=== PATIENT | male | born 1940 | race Caucasian/White ===

== ENCOUNTER → 2017-12-09 06:51 | Outpatient (CLI) | payer MEDICARE, SELFPAY ==
[2017-12-09 08:29] LABS: Alanine Aminotransferase 43 IU/L (21-72); Albumin 4.4 g/dL (3.5-5.0); Albumin Globulin Ratio 1.5 (1.0-2.8); Alkaline Phosphatase 58 U/L (38-126); Aspartate Aminotransferase 35 IU/L (17-59); BUN Creatinine Ratio 14.6 (6-22); Bilirubin Total 0.6 mg/dL (0.2-1.3); Blood Urea Nitrogen 19 mg/dL (9-20); Calcium 9.6 mg/dL (8.4-10.2); Carbon Dioxide 31 mmol/L (22-32); Chloride 97 mmol/L (98-107); Estimated Glomerular Filt Rate 53.3 mL/min (>60); Glucose 96 mg/dL (80-110); HEMOLYSIS < 15 (0-50); Potassium 4.6 mmol/L (3.4-5.1); Sodium 136 mmol/L (137-145); Total Protein 7.4 g/dL (6.3-8.2)
[2017-12-09 08:59] LABS: Prostate Specific Antigen Scrn 2.21 ng/mL (0.1-4.0)
[2017-12-13 09:48] LABS: Lipoprofile NMR SEE SEPARATE REPORTS
== END ==
PROVIDERS: PCP Internal Medicine; Visit Provider Specialist
DX: E78.2 Mixed hyperlipidemia (principal); Z12.5 Encounter for screening for malignant neoplasm of prostate
CPT/HCPCS: 36415; 80053; 83704; G0103

== ENCOUNTER → 2017-12-21 10:43 | Outpatient (CLI) | payer MEDICARE, SELFPAY ==
--- NOTE | 2017-12-21 | DI.ECHO.S_ITS ---
[facility] +---------+ : : [address] : : : : [id number] : : : : Phone: [phone]+ Echocardiogram Report + + :Name: HAMLET YANG Study Date: 12/21/2017 Height: 67 in : :[facility] Exam Location: [facility] Weight: 152 lb : : Gender: Male BSA: 1.8 m2 : :: 1940 Age: 77 yrs BP: 190/90 mmHg: :Reason For Study: : :Ordering Physician: Eliane : :Paolo Performed By: Danielle Temple : :Referring: ELIANE BOYD : + + Interpretation Summary The left ventricle is normal in size, wall thickness, and systolic function without any focal wall motion abnormalities with the ejection fraction visually estimated to be 60-65% and appears unchanged compared to the previous study. Assessment of diastolic parameters indicates a relaxation abnormality of the left ventricle, consistent with normal filling pressures. There has been no significant change since the previous study. The right ventricle is normal in size and function, and appears unchanged compared to the previous study. The right ventricular systolic pressure is estimated at 26 mmHg assuming a right atrial pressure of 3 mm Hg, and is unchanged compared to the previous study. The left atrium is severely dilated while right atrial size is normal. Both are essentially unchanged compared to the previous study. There is mild to moderate mitral regurgitation that is slightly more prominent compared to the previous study. The aortic valve is moderately calcified that appears slightly more prominent compared to the previous study. There is mild to moderate aortic stenosis that is essentially unchanged compared to the previous study with a peak aortic velocity of 2.6 m/sec and a mean gradient of 15 mmHg. There is trace aortic regurgitation that is unchanged compared to the previous study. The ascending aorta is mildly enlarged but is unchanged compared to the previous study. Procedure: A two-dimensional transthoracic echocardiogram with color flow and Doppler was performed. The study quality was technically adequate. Comparison is made with the echocardiogram of 02/05/16. The patient was in normal sinus rhythm during the exam. The patient had frequent PACs during the exam. Left Ventricle: The left ventricle is normal in size, wall thickness, and systolic function without any focal wall motion abnormalities. The ejection fraction is estimated to be 60-65%. This is unchanged compared to the previous study. Assessment of diastolic parameters indicates a relaxation abnormality of the left ventricle, consistent with normal filling pressures. There has been no significant change since the previous study. Right Ventricle: The right ventricle is normal in size and function. This is unchanged compared to the previous study. Atria: The left atrium is severely dilated. Right atrial size is normal. This is unchanged compared to the previous study. There is no Doppler evidence for an interatrial shunt. Mitral Valve: There is mild mitral annular calcification. There is mild to moderate mitral regurgitation. This is slightly more prominent compared to the previous study. Aortic Valve: The aortic valve is trileaflet. The aortic valve is moderately calcified. Leaflet mobility is mildly reduced. This is slightly more prominent compared to the previous study. There is mild to moderate aortic stenosis. This is unchanged compared to the previous study. The calculated aortic valve area is 1.3 cm2. The peak aortic velocity is 2.6 m/sec. The peak aortic velocity on the previous exam was 2.5 m/sec. The aortic valve mean gradient is 15 mmHg. There is trace aortic regurgitation. This is unchanged compared to the previous study. Tricuspid Valve: The tricuspid valve is normal. There is trace tricuspid regurgitation. The right ventricular systolic pressure is estimated at 26 mmHg assuming a right atrial pressure of 3 mm Hg. This is unchanged compared to the previous study. Pulmonic Valve: The pulmonic valve is not well seen, but is grossly normal. There is trace pulmonic regurgitation. Great Vessels: The aortic root is normal size. The ascending aorta is mildly enlarged. This is unchanged compared to the previous study. The aortic arch could not be visualized. The pulmonary is not well visualized. The IVC is of normal diameter and collapses greater than 50% with a sniff. This suggests a low right atrial pressure of 3 mm Hg. Pericardium/ Pleura There is no pericardial effusion. There is no pleural effusion. MMode/2D Measurements & Calculations LVIDd: 4.5 cm LVOT diam: 2.1 cm LVIDs: 2.7 cm Ao root diam: 3.4 cm FS: 39.3 % asc Aorta Diam: 3.7 cm EPSS: 0.54 cm IVSd: 0.99 cm LVPWd: 0.91 cm LV flores. diameter/BSA (cm/m^2): 2.5 LV sys. diameter/BSA (cm/m^2): 1.5 LA A2 area: 26.7 cm2 RA long axis: 4.8 cm LA A4 area: 24.2 cm2 RA area: 15.8 cm2 LA length (vol): 5.6 cm RA vol: 43.7 ml LA vol: 98.0 ml RA : 24.3 ml/m2 LA vol index: 54.5 ml/m2 IVC diam: 0.96 cm RVD1 (basal): 4.1 cm RVD2 (mid): 2.6 cm TAPSE: 3.1 cm Doppler Measurements & Calculations Ao V2 max: 257.4 cm/sec LVOT Max Saleem: 98.1 cm/sec Ao V2 mean: 182.4 cm/sec LV V1 max P.8 mmHg Ao max P.5 mmHg LV V1 VTI: 22.3 cm Ao mean P.6 mmHg THAO(I,D): 1.3 cm2 Ao V2 VTI: 62.7 cm THAO(V,D): 1.4 cm2 sev ratio: 0.36 THAO indexed to BSA (cm^2/m^2): 0.72 AI P1/2t: 489.8 msec AI dec slope: 257.6 cm/sec2 MV E max saleem: 77.0 cm/sec TR max saleem: 237.9 cm/sec MV A max saleem: 112.9 cm/sec TR max P.6 mmHg MV E/A: 0.68 PA V2 max: 76.3 cm/sec Med Peak E' Saleem: 4.2 cm/sec PA V2 mean: 59.0 cm/sec E/E' med: 18.3 PA mean P.5 mmHg Lat Peak E' Saleem: 4.6 cm/sec PA pr(Accel): 44.1 mmHg E/E' lat: 16.6 E/e' average: 17.5 MV dec time: 0.21 sec MV P1/2t: 60.4 msec MV P1/2t max saleem: 77.2 cm/sec MVA(P1/2t): 3.6 cm2 Reading Physician:BLOSSOM
== END ==
PROVIDERS: PCP Internal Medicine; Visit Provider Specialist
DX: I08.0 Rheumatic disorders of both mitral and aortic valves (principal)
CPT/HCPCS: 93306

== ENCOUNTER → 2018-01-18 08:47 | Outpatient (CLI) | payer MEDICARE, SELFPAY ==
[2018-01-18 10:41] LABS: BUN Creatinine Ratio 10.8 (6-22); Blood Urea Nitrogen 14 mg/dL (9-20); Calcium 9.5 mg/dL (8.4-10.2); Carbon Dioxide 29 mmol/L (22-32); Chloride 92 mmol/L (98-107); Estimated Glomerular Filt Rate 53.3 mL/min (>60); Glucose 95 mg/dL (80-110); HEMOLYSIS < 15 (0-50); Potassium 4.6 mmol/L (3.4-5.1); Sodium 131 mmol/L (137-145)
== END ==
PROVIDERS: Family Provider Internal Medicine; PCP Internal Medicine; Visit Provider Specialist
DX: I10 Essential (primary) hypertension (principal); E78.2 Mixed hyperlipidemia
CPT/HCPCS: 36415; 80048

== ENCOUNTER → 2018-09-29 06:57 | Outpatient (CLI) | payer MEDICARE, SELFPAY ==
[2018-09-29 08:10] LABS: Alanine Aminotransferase 22 IU/L (21-72); Albumin 4.5 g/dL (3.5-5.0); Albumin Globulin Ratio 1.3 (1.0-2.8); Alkaline Phosphatase 50 U/L (38-126); Aspartate Aminotransferase 27 IU/L (17-59); BUN Creatinine Ratio 14.3 (6-22); Bilirubin Total 0.6 mg/dL (0.2-1.3); Blood Urea Nitrogen 20 mg/dL (9-20); Calcium 9.6 mg/dL (8.4-10.2); Carbon Dioxide 29 mmol/L (22-32); Chloride 97 mmol/L (98-107); Estimated Glomerular Filt Rate 48.8 mL/min (>60); Globulin 3.5 g/dL (1.7-4.1); Glucose 96 mg/dL (80-110); HEMOLYSIS < 15 (0-50); Potassium 4.2 mmol/L (3.4-5.1); Sodium 133 mmol/L (137-145)
[2018-10-03 08:44] LABS: Lipoprofile NMR SEE SEPERATE REPORT
== END ==
PROVIDERS: Family Provider Internal Medicine; PCP Internal Medicine; Visit Provider Specialist
DX: I10 Essential (primary) hypertension (principal); E78.2 Mixed hyperlipidemia
CPT/HCPCS: 36415; 80053; 83704

== ENCOUNTER → 2018-10-03 12:07 | Outpatient (CLI) | payer MEDICARE, SELFPAY ==
--- NOTE | 2018-10-03 | DI.US.S_ITS ---
PROCEDURE: US CAROTID DOPPLER BI INDICATIONS: BILATERAL CAROTID BRUITS TECHNIQUE: Color and pulse Doppler interrogation was performed of both carotid systems, with image documentation and velocity measurements. COMPARISON: [facility], [place], CAROTID ARTERY DOPPLER BILAT, 07/19/2014, 9:19. FINDINGS: Stenosis calculations are based on SRU (Society of Radiologists in Ultrasound) criteria. Right side: Brachial blood pressure: 143/72 mm Hg. Common carotid artery peak systolic velocity: 87 cm/sec. Internal carotid artery peak systolic velocity: 98 cm/sec. Internal carotid artery end diastolic velocity: 38 cm/sec. External carotid artery peak systolic velocity: 105 cm/sec. ICA/CCA peak systolic ratio: 1.1. Brennan scale imaging description: Mild scattered plaque. Percent internal carotid artery stenosis: Less than 50%. Vertebral artery: Flow direction is antegrade. Left side: Brachial blood pressure: 156/67 mm Hg. Common carotid artery peak systolic velocity: 77 cm/sec. Internal carotid artery peak systolic velocity: 82 cm/sec. Internal carotid artery end diastolic velocity: 33 cm/sec. External carotid artery peak systolic velocity: 83 cm/sec. ICA/CCA peak systolic ratio: 1.1. Brennan scale imaging description: Moderate scattered plaque. Percent internal carotid artery stenosis: Less than 50%. Vertebral artery: Flow direction is antegrade. IMPRESSION: Stable left than 50% bilateral internal carotid artery stenosis. Dictated by: William Rosa [facility] Interpreted: Nikolai Francisco MD on 10/03/2018 at 13:33 Approved by: Nikolai Francisco M.D. on 10/03/2018 at 17:22
== END ==
PROVIDERS: PCP Internal Medicine; Visit Provider Specialist
DX: I65.23 Occlusion and stenosis of bilateral carotid arteries (principal); R09.89 Other specified symptoms and signs involving the circulatory and respiratory systems
CPT/HCPCS: 93880

== ENCOUNTER → 2018-10-21 07:51 | Outpatient (CLI) | payer MEDICARE, SELFPAY ==
--- NOTE | 2018-10-21 | DI.ECHO.S_ITS ---
[facility]---------+ [facility] +---------+ : : [address] [place] [place] : : : : [id number] : : : : Phone: [phone]---------+ Echocardiogram Report + + :Name: HAMLET YANG Study Date: 10/21/2018 Height: 67 in : :[facility] Weight: 157 lb : : Gender: Male BSA: 1.8 m2 : :: 1940 Age: 78 yrs BP: 170/70 mmHg: :Reason For Study: Aortic valve stenosis : :Ordering Physician: Selwyn : :Paolo Performed By: Opal Galeas : :Referring: Dr. Carlton Barron : + + Interpretation Summary Left ventricular systolic function is normal without focal wall motion abnormalities with the ejection fraction visually estimated to be 60-65%. Left ventricular wall thickness is borderline increased and diastolic parameters suggest a relaxation abnormality of the left ventricle, consistent with probable normal filling pressures. There has been no significant change since the previous study. The right ventricle is normal in size and function and appears unchanged compared to the previous study. The right ventricular systolic pressure is estimated to be at least 28 mmHg based on an estimated right atrial pressure of 3 mm Hg, and is likely similar to the previous study. The left atrium is moderately dilated and is unchanged compared to the previous study. The right atrium is borderline dilated and measures slightly larger compared to the previous study. There is mild mitral regurgitation that is unchanged compared to the previous study. The aortic valve is severely calcified with moderate to severely reduced leaflet mobility producing probable moderate aortic stenosis that is slightly progressive compared to the previous study. The peak aortic velocity is 2.9 m/s compared to 2.6 m/s on the previous exam. The aortic valve mean gradient is now 18 mmHg compared to 15 mmHg previously with a calculated aortic valve area of 1.1 rn maternal child? compared to 1.4 rn maternal child? previously. The aortic valve area is 0.7 rn maternal child? by planimetry but the severity ratio is only 0.32, compared to 0.36 previously. There is mild aortic regurgitation that is slightly more prominent compared to the previous study. The ascending aorta is mildly enlarged and the aortic arch is at the upper limits of normal in size but are unchanged compared to the previous study. The patient was in normal sinus rhythm between 55-65 bpm with frequent PACs, at times in a bigeminal pattern, during the exam. Procedure: A two-dimensional transthoracic echocardiogram with color flow and Doppler was performed. The study quality was technically adequate. Comparison is made with the echocardiogram of 12-21-17. The patient was in normal sinus rhythm during the exam. The heart rate ranged between 55-65 bpm during the study. The patient had frequent PACs during the exam. Left Ventricle: The left ventricle is normal in size. Left ventricular wall thickness is borderline increased. Left ventricular systolic function is normal without focal wall motion abnormalities. The ejection fraction is estimated to be 60-65%. Diastolic parameters suggest a relaxation abnormality of the left ventricle, consistent with probable normal filling pressures. There has been no significant change since the previous study. Right Ventricle: The right ventricle is normal in size and function. This is unchanged compared to the previous study. Atria: The left atrium is moderately dilated. This is unchanged compared to the previous study. The right atrium is borderline dilated. This is slightly larger compared to the previous study. Mitral Valve: There is mild to moderate mitral annular calcification. The mitral valve leaflets appear borderline thickened, but open well. There is mild mitral regurgitation. This is unchanged compared to the previous study. Aortic Valve: The aortic valve is severely calcified. There is moderate to severely reduced leaflet mobility. There is moderate aortic stenosis. This is slightly progressive compared to the previous study. The peak aortic velocity is 2.9 m/sec. The peak aortic velocity on the previous exam was 2.6 m/sec. The aortic valve mean gradient is 18 mmHg. The calculated aortic valve area is 1.1 cm2. The aortic valve area is 0.7 centimeters squared by planimetry. Severity ratio is 0.32. There is mild aortic regurgitation. This is slightly more prominent compared to the previous study. Tricuspid Valve: The tricuspid valve leaflets are thin and pliable. There is trace tricuspid regurgitation. The right ventricular systolic pressure is estimated to be at least 28 mmHg based on an estimated right atrial pressure of 3 mm Hg. This is unchanged compared to the previous study. Pulmonic Valve: The pulmonic valve is not well seen, but is grossly normal. There is trace pulmonic regurgitation. Great Vessels: The aortic root is normal size. The ascending aorta is mildly enlarged. The aortic arch is at the upper limits of normal in size. This is unchanged compared to the previous study. The IVC is of normal diameter and collapses greater than 50% with a sniff. This suggests a low right atrial pressure of 3 mm Hg. Pericardium/ Pleura There is no pericardial effusion. There is no pleural effusion. MMode/2D Measurements & Calculations LVIDd: 4.9 cm LVOT diam: 2.1 cm LVIDs: 2.6 cm Ao root diam: 3.0 cm FS: 46.7 % Aortic Jxn: 2.3 cm EPSS: 0.75 cm asc Aorta Diam: 3.6 cm IVSd: 0.89 cm Ao Arch Diam (Prox Trans): 3.0 cm LVPWd: 0.86 cm LV flores. diameter/BSA (cm/m^2): 2.7 LV sys. diameter/BSA (cm/m^2): 1.4 LA dimension: 4.1 cm RA long axis: 4.9 cm LA A2 area: 25.2 cm2 RA area: 18.1 cm2 LA A4 area: 20.4 cm2 RA vol: 56.6 ml LA length (vol): 4.8 cm RA : 31.0 ml/m2 LA vol: 90.1 ml IVC diam: 1.6 cm LA vol index: 49.4 ml/m2 RVDd major: 5.0 cm RVD1 (basal): 3.3 cm RVD2 (mid): 3.0 cm THAO (plan): 0.69 cm2 Doppler Measurements & Calculations Ao V2 max: 291.1 cm/sec LVOT Max Saleem: 94.3 cm/sec Ao V2 mean: 199.7 cm/sec LV V1 max P.6 mmHg Ao max P.9 mmHg LV V1 VTI: 24.4 cm Ao mean P.1 mmHg THAO(I,D): 1.1 cm2 Ao V2 VTI: 75.3 cm THAO(V,D): 1.1 cm2 sev ratio: 0.32 THAO indexed to BSA (cm^2/m^2): 0.62 AI P1/2t: 549.5 msec AI dec slope: 273.6 cm/sec2 MV E max saleem: 90.8 cm/sec TR max saleem: 248.6 cm/sec MV A max saleem: 108.5 cm/sec TR max P.7 mmHg MV E/A: 0.84 PA V2 max: 78.6 cm/sec Med Peak E' Slaeem: 3.6 cm/sec PA V2 mean: 51.7 cm/sec E/E' med: 25.4 PA mean P.3 mmHg Lat Peak E' Saleem: 6.3 cm/sec PA Accel Time: 0.13 sec E/E' lat: 14.4 E/e' average: 19.9 MV dec time: 0.19 sec MV P1/2t: 57.1 msec MV P1/2t max saleem: 91.4 cm/sec MR flow rate: 51.1 cm3/sec MVA(2t): 3.9 cm2 MR PISA radius: 0.46 cm SV(LVOT): 85.7 ml Reading Physician:CYNTHIA
== END ==
PROVIDERS: PCP Internal Medicine; Visit Provider Specialist
DX: I08.0 Rheumatic disorders of both mitral and aortic valves (principal); I77.89 Other specified disorders of arteries and arterioles
CPT/HCPCS: 93306

== ENCOUNTER → 2018-11-10 07:42 | Outpatient (CLI) | payer MEDICARE, SELFPAY ==
--- NOTE | 2018-11-10 | DI.NM.S_ITS ---
PROCEDURE: AR CHANTAL PERF SPECT REST & STR Rest and exercise myocardial perfusion SPECT with gated imaging and ejection fraction RADIOPHARMACEUTICAL: 25.7 mCi Tc-99m sestamibi IV at rest and 25.8 mCi Tc-99m sestamibi IV at peak exercise. A two day-protocol was performed. INDICATIONS: ANGINA PECTORIS TECHNIQUE: Radiopharmaceutical was injected at peak stress test, and also at rest. SPECT images were obtained. SPECT myocardial perfusion images were displayed in short axis, horizontal long axis, and vertical long axis views. Gated images were reviewed using [email or web address] software. COMPARISON: [place], [place], MYOCARDIAL PERFUSION, 01/07/2009, 13:17. CARDIAC STRESS: A standard Héctor treadmill exercise tolerance test was performed by the patient under the supervision of an attending staff. The patient exercised for 6 minutes and 4 seconds; functional aerobic impairment (PAULY) is -10% on active scale. Hemodynamic data: There is normal blood pressure and heart rate response to exercise stress. Patient achieved 92% of maximum predicted heart rate at peak exercise. Symptoms: Patient denied chest pain during exercise. Study was stopped as the target heart rate was achieved. EKG: Resting ECG shows sinus rhythm and very mild ST depression in the anterior leads. With exercise, there were 2-3mm downsloping ST depressions in the inferior and anterolateral leads concerning for ischemia. ST elevation in aVR lead also noted. No ectopy present. FINDINGS: Raw data: There is good myocardial labeling by radiotracer. No significant motion artifacts. [id number] ratio is 0.3 (normal is less than 0.38 for sestamibi tracer, and less than 0.50 for thallium tracer). Left ventricle function: Gated images demonstrate normal left ventricle wall thickening. No segmental wall motion abnormality. No transient ischemic dilation; TID is 1.22 (normal less than 1.3). The left ventricle resting end-diastolic volume is 109 mL. Left ventricle stress ejection fraction is 62%; normal values are above 45%. 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 SSS 29, SRS 12. IMPRESSION: High risk, abnormal treadmill nuclear stress test. 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 SSS 29, SRS 12. 2) Normal left ventricular size, wall motion, and systolic function (EF post stress 62%). 3) ECG suggestive of ischemia. 2-3mm downsloping ST depressions in the inferior and anterolateral leads concerning for ischemia. ST elevation in aVR lead also noted. 4) No angina during the study. Study terminated as the target heart rate was achieved. 5) Average exercise tolerance (7.0 METs, PAULY -10% on active scale). Appropriate blood pressure response to exercise. 6) Compared to the nuclear stress test done 01/07/2009, the perfusion abnormalities described above are new on this study. Dictated by: Caitlin Merino MD on 11/11/2018 at 12:57 Approved by: Caitlin Merino MD on 11/11/2018 at 13:05
--- NOTE | 2018-11-10 08:45 | PM.TREADMILL ---
Cardiac Stress Test Report Referral & Results Date Patient Seen: 11/10/18 Time Patient Seen: 08:30 Requesting provider: Selwyn Boone Indication: Angina Rest ECG: NSR Procedure Note: Today following both written and verbal informed consent the patient was exercised according to a standard Héctor protocol patient went for a total of 6 minutes achieving a maximum heart rate of 129 maximum systolic blood pressure of 165. This is approximately 7 METS. Exercise was terminated at this point because of diffuse ST deviations of approximately 3 mm. Patient was also given Cardiolite through a previously started Hep-Lock IV by the nuclear plant construction worker approximately 1 minute prior to the cessation of exercise. Normal sinus rhythm throughout. Mild symptoms of angina, non limiting. Impression: Will await perfusion imaging. Please note: Actual ECG tracings can be found in the PACS system.
== END ==
PROVIDERS: PCP Internal Medicine; Visit Provider Specialist
DX: R94.39 Abnormal result of other cardiovascular function study (principal); I20.9 Angina pectoris, unspecified
CPT/HCPCS: 78452; 93016; 93017; 93018; A9502

== ENCOUNTER → 2018-11-30 16:23 | Outpatient (CLI) | payer MEDICARE, SELFPAY ==
[2018-11-30 17:07] LABS: Add Manual Diff / Slide Review NO; Basophils Absolute Auto 0 /uL (0-100); Basophils Percent Auto 0.8 % (0-2); Eosinophils Absolute Auto 300 /uL (0-450); Eosinophils Percent Auto 6.7 % (2-4); Hematocrit 35.9 % (41-53); Hemoglobin 12.4 g/dL (13.5-17.5); Lymphocytes Absolute Auto 800 /uL (1100-4500); Lymphocytes Percent Auto 17.7 % (25-40); Mean Corpuscular HGB Conc 34.6 % (30-36); Mean Corpuscular Hemoglobin 30.9 PG (26-34); Mean Corpuscular Volume 89.2 fL (80-100); Monocytes Absolute Auto 500 /uL (0-900); Monocytes Percent Auto 11.4 % (3-14); Neutrophils Absolute Auto 3000 /uL (1500-7000); Neutrophils Percent Auto 63.4 % (50-75); Platelet Count 354 X10^3/uL (150-400); Red Blood Cell Count 4.02 X10^6/uL (4.5-5.9); Red Cell Distribution Width 13.1 % (11.6-14.8); White Blood Cell Count 4.8 X10^3/uL (4.5-11.0)
[2018-11-30 18:52] LABS: Thyroid Stimulating Hormone 2.44 uIU/mL (0.47-4.68)
== END ==
PROVIDERS: PCP Internal Medicine; Visit Provider Nurse Practitioner
DX: I25.10 Atherosclerotic heart disease of native coronary artery without angina pectoris (principal); R53.83 Other fatigue
CPT/HCPCS: 36415; 84443; 85025

== ENCOUNTER → 2019-01-31 12:02 | Outpatient (CLI) | payer MEDICARE, SELFPAY ==
--- NOTE | 2019-01-31 12:06 | DI.RAD.S_ITS ---
PROCEDURE: XR CHEST 2V INDICATIONS: hypertension TECHNIQUE: 2 views of the chest were acquired. COMPARISON: None. FINDINGS: Surgical changes and devices: None. Lungs and pleura: Lungs are clear. No pleural effusions or pneumothorax. Mediastinum: Mediastinal contours are normal. Heart size is normal. Bones and chest wall: No suspicious bony abnormalities. Soft tissues appear unremarkable. IMPRESSION: Large lung volumes, flattening of the diaphragms on the lateral view, possible COPD. Dictated by: Juarez Hidalgo M.D. on 01/31/2019 at 13:47 Approved by: Juarez Hidalgo M.D. on 01/31/2019 at 13:47
[2019-01-31 12:49] LABS: Add Manual Diff / Slide Review NO; Basophils Absolute Auto 0 /uL (0-100); Basophils Percent Auto 0.6 % (0-2); Eosinophils Absolute Auto 200 /uL (0-450); Eosinophils Percent Auto 4.7 % (2-4); Hematocrit 35.8 % (41-53); Hemoglobin 12.8 g/dL (13.5-17.5); Lymphocytes Absolute Auto 600 /uL (1100-4500); Lymphocytes Percent Auto 13.7 % (25-40); Mean Corpuscular HGB Conc 35.8 % (30-36); Mean Corpuscular Hemoglobin 32.1 PG (26-34); Mean Corpuscular Volume 89.7 fL (80-100); Monocytes Absolute Auto 600 /uL (0-900); Monocytes Percent Auto 12.1 % (3-14); Neutrophils Absolute Auto 3200 /uL (1500-7000); Neutrophils Percent Auto 68.9 % (50-75); Platelet Count 331 X10^3/uL (150-400); Red Cell Distribution Width 13.4 % (11.6-14.8); White Blood Cell Count 4.7 X10^3/uL (4.5-11.0)
[2019-01-31 13:39] LABS: Alanine Aminotransferase 34 IU/L (21-72); Albumin 4.6 g/dL (3.5-5.0); Albumin Globulin Ratio 1.4 (1.0-2.8); Alkaline Phosphatase 55 U/L (38-126); Aspartate Aminotransferase 33 IU/L (17-59); BUN Creatinine Ratio 14.3 (6-22); Bilirubin Total 0.5 mg/dL (0.2-1.3); Blood Urea Nitrogen 20 mg/dL (9-20); Calcium 9.7 mg/dL (8.4-10.2); Carbon Dioxide 27 mmol/L (22-32); Chloride 92 mmol/L (98-107); Estimated Glomerular Filt Rate 48.8 mL/min (>60); Globulin 3.2 g/dL (1.7-4.1); Glucose 117 mg/dL (80-110); HEMOLYSIS < 15 (0-50); Potassium 4.8 mmol/L (3.4-5.1); Sodium 130 mmol/L (137-145); Total Protein 7.8 g/dL (6.3-8.2)
== END ==
PROVIDERS: Family Provider Specialist; PCP Internal Medicine; Visit Provider Internal Medicine
DX: I25.10 Atherosclerotic heart disease of native coronary artery without angina pectoris (principal); I10 Essential (primary) hypertension; I35.0 Nonrheumatic aortic (valve) stenosis
CPT/HCPCS: 36415; 71046; 80053; 85025

== ENCOUNTER → 2019-03-02 06:53 | Outpatient (CLI) | payer MEDICARE, SELFPAY ==
[2019-03-02 08:09] LABS: Alanine Aminotransferase 27 IU/L (<50); Albumin 4.6 g/dL (3.5-5.0); Albumin Globulin Ratio 1.5 (1.0-2.8); Alkaline Phosphatase 59 U/L (38-126); Aspartate Aminotransferase 36 IU/L (17-59); Bilirubin Total 0.8 mg/dL (0.2-1.3); Blood Urea Nitrogen 21 mg/dL (9-20); Calcium 9.8 mg/dL (8.4-10.2); Carbon Dioxide 28 mmol/L (22-32); Chloride 100 mmol/L (98-107); Estimated Glomerular Filt Rate 48.8 mL/min (>60); Globulin 3.1 g/dL (1.7-4.1); Glucose 97 mg/dL (80-110); HEMOLYSIS < 15 (0-50); Potassium 5.1 mmol/L (3.4-5.1); Sodium 136 mmol/L (137-145); Total Protein 7.7 g/dL (6.3-8.2)
[2019-03-06 10:18] LABS: Lipoprofile NMR SEE SEPARATE REPORTS
== END ==
PROVIDERS: Family Provider Internal Medicine; PCP Internal Medicine; Visit Provider Specialist
DX: E78.2 Mixed hyperlipidemia (principal)
CPT/HCPCS: 36415; 80053; 83704

== ENCOUNTER → 2019-09-20 06:56 | Outpatient (CLI) | payer MEDICARE, SELFPAY ==
[2019-09-20 08:09] LABS: Add Manual Diff / Slide Review NO; Basophils Absolute Auto 0 /uL (0-100); Basophils Percent Auto 0.7 % (0-2); Eosinophils Absolute Auto 400 /uL (0-450); Eosinophils Percent Auto 8.5 % (2-4); Hematocrit 37.9 % (41-53); Hemoglobin 13.2 g/dL (13.5-17.5); Lymphocytes Absolute Auto 600 /uL (1100-4500); Lymphocytes Percent Auto 14.7 % (25-40); Mean Corpuscular HGB Conc 34.7 % (30-36); Mean Corpuscular Hemoglobin 31.2 PG (26-34); Mean Corpuscular Volume 89.7 fL (80-100); Monocytes Absolute Auto 500 /uL (0-900); Monocytes Percent Auto 12.4 % (3-14); Neutrophils Absolute Auto 2800 /uL (1500-7000); Neutrophils Percent Auto 63.7 % (50-75); Platelet Count 395 X10^3/uL (150-400); Red Blood Cell Count 4.23 X10^6/uL (4.5-5.9); Red Cell Distribution Width 13.6 % (11.6-14.8); White Blood Cell Count 4.3 X10^3/uL (4.5-11.0)
[2019-09-20 08:20] LABS: Alanine Aminotransferase 24 IU/L (<50); Albumin 4.6 g/dL (3.5-5.0); Albumin Globulin Ratio 1.4 (1.0-2.8); Alkaline Phosphatase 54 U/L (38-126); Aspartate Aminotransferase 37 IU/L (17-59); Bilirubin Total 0.6 mg/dL (0.2-1.3); Blood Urea Nitrogen 17 mg/dL (9-20); Calcium 9.9 mg/dL (8.4-10.2); Carbon Dioxide 28 mmol/L (22-32); Chloride 99 mmol/L (98-107); Estimated Glomerular Filt Rate 52.5 mL/min (>60); Globulin 3.4 g/dL (1.7-4.1); Glucose 105 mg/dL (80-110); HEMOLYSIS < 15 (0-50); Potassium 5.2 mmol/L (3.4-5.1); Sodium 134 mmol/L (137-145)
[2019-09-22 07:36] LABS: Cholesterol, Total 227 mg/dL (100-199); HDL-Cholesterol 96 mg/dL (>39); HDL-Particle (Total) 48.9 umol/L (>=30.5); Historical Reading Comment: (.); LDL Particle 1107 nmol/L (<1000); LDL Size 21.4 nm (>20.5); LDL-Cholsterol 116 mg/dL (0-99); LP-IR Score <25 (<=45); Small LDL- Particle <90 nmol/L (<=527); Triglycerides 74 mg/dL (0-149)
== END ==
PROVIDERS: Family Provider Internal Medicine; PCP Internal Medicine; Referring Provider Specialist; Visit Provider Specialist
DX: E78.2 Mixed hyperlipidemia (principal); I10 Essential (primary) hypertension
CPT/HCPCS: 36415; 80053; 80061; 83704; 85025

== ENCOUNTER → 2019-09-28 13:46 | Outpatient (CLI) | payer MEDICARE, SELFPAY ==
--- NOTE | 2019-09-28 13:50 | DI.ECHO.S_ITS ---
[facility] +---------+ : : [address] : : : : [id number] : : : : Phone: [phone] +---------+ Echocardiogram Report + + :Name: HAMLET YANG Study Date: 09/28/2019 Height: 67 in : :[facility] Weight: 155 lb : : Gender: Male BSA: 1.8 m2 : :: 1940 Age: 79 yrs BP: 170/65 mmHg: :Reason For Study: Aortic Stenosis : :Ordering Physician: Eliane : :Paolo Performed By: Jaymie Warren : :Referring: ELIANE BOYD : + + Interpretation Summary Left ventricular systolic function remains normal with an estimated ejection fraction of around 65% without any focal wall motion abnormality and appears unchanged from previous. There is borderline, unchanged LVH. Diastolic function is somewhat challenging to assess but there is likely elevated filling pressures, although likely unchanged or slightly lower compared to the previous study. The right ventricle appears normal and unchanged. PAP cannot be estimated but CVP is likely around 3 mmHg. The left atrium is mildly enlarged while right atrial size is normal. Both have decreased in size since the previous study. There is trivial mitral and tricuspid regurgitation, and both are less prominent compared to the previous. There is likely moderately severe aortic stenosis, possibly slightly progressive since the previous study now with a peak velocity of 3.4 m/s with a mean gradient of 26 mmHg compared to 2.9 m/s and 18 mmHg, respectively, compared to the previous study although more extensive Doppler interrogations were performed on today's exam. The calculated valve area is identical at 1.1 transmission and coordination engineer? and the severity ratio is similar at 0.36 compared to 0.32 previously. There continues to be mild aortic regurgitation that is unchanged. The ascending aorta is mildly enlarged but unchanged. Procedure: A two-dimensional transthoracic echocardiogram with color flow and Doppler was performed. The study quality was technically adequate. Comparison is made with the echocardiogram of 10/21/2018. The patient was in sinus rhythm with heart rates between 65-70 bpm during the exam. Left Ventricle: The left ventricle is normal in size. There is borderline concentric left ventricular hypertrophy. This is unchanged compared to the previous study. Left ventricular systolic function is normal without focal wall motion abnormalities. The ejection fraction is estimated to be 65-70%. This is unchanged compared to the previous study. Diastolic parameters suggest a pseudonormalization pattern, consistent with probable elevated filling pressures. This is likely unchanged or slightly lower compared to the previous study. Right Ventricle: The right ventricle is normal in size and function. This is unchanged compared to the previous study. Atria: The left atrium is mildly dilated. Both atria have mildly decreased in size since the prior echo exam. The right atrium is normal in size. There is no Doppler evidence for an interatrial shunt. Mitral Valve: There is mild to moderate mitral annular calcification. The mitral valve leaflets appear borderline thickened, but open well. There is trace mitral regurgitation. This is less prominent compared to the previous study. Aortic Valve: The aortic valve is moderately calcified. There is moderate to severely reduced leaflet mobility. There is moderate to severe aortic stenosis. This is likely unchanged or only slightly progressive compared to the previous study. The peak aortic velocity is 3.4 m/sec. The aortic valve mean gradient is 26.5 mmHg. The peak aortic velocity on the previous exam was 2.9 m/sec. There is mild aortic regurgitation. This is unchanged compared to the previous study. Tricuspid Valve: The tricuspid valve is normal in structure and function. There is trace tricuspid regurgitation. This is less prominent compared to the previous study. Pulmonary artery pressures cannot be estimated because of the lack of a measurable TR jet velocity but the IVC suggests a CVP of around 3 mmHg. Pulmonic Valve: The pulmonic valve is not well seen, but is grossly normal. There is a trace or physiologic amount of pulmonic regurgitation. There is no other significant valvular heart disease. Great Vessels: The aortic root is normal size. The ascending aorta is mildly enlarged. This is unchanged compared to the previous study. The IVC is of normal diameter and collapses greater than 50% with a sniff. This suggests a low right atrial pressure of 3 mm Hg. Pericardium/ Pleura There is no pericardial effusion. There is no pleural effusion. MMode/2D Measurements & Calculations LVIDd: 4.4 cm LVOT diam: 2.0 cm LVIDs: 2.8 cm Ao root diam: 3.0 cm FS: 35.1 % asc Aorta Diam: 3.7 cm EPSS: 0.89 cm Ao Arch Diam (Prox Trans): 2.3 cm IVSd: 0.91 cm LVPWd: 1.00 cm LV flores. diameter/BSA (cm/m^2): 2.4 LV sys. diameter/BSA (cm/m^2): 1.6 LA A2 area: 19.5 cm2 RA long axis: 5.1 cm LA A4 area: 19.4 cm2 RA area: 16.2 cm2 LA length (vol): 5.0 cm RA vol: 44.3 ml LA vol: 64.5 ml RA : 24.4 ml/m2 LA vol index: 35.6 ml/m2 IVC diam: 1.5 cm RVD1 (basal): 3.0 cm TAPSE: 2.7 cm Doppler Measurements & Calculations Ao V2 max: 331.5 cm/sec LVOT Max Saleem: 126.2 cm/sec Ao V2 mean: 244.2 cm/sec LV V1 max P.4 mmHg Ao max P.0 mmHg LV V1 VTI: 29.2 cm Ao mean P.5 mmHg THAO(I,D): 1.1 cm2 Ao V2 VTI: 81.9 cm THAO(V,D): 1.2 cm2 sev ratio: 0.36 THAO indexed to BSA (cm^2/m^2): 0.62 AI P1/2t: 528.5 msec AI dec slope: 265.5 cm/sec2 MV E max saleem: 84.4 cm/sec TR max saleem: 210.7 cm/sec MV A max saleem: 114.9 cm/sec TR max P.8 mmHg MV E/A: 0.73 PA V2 max: 83.4 cm/sec Med Peak E' Saleem: 4.9 cm/sec PA V2 mean: 55.9 cm/sec E/E' med: 17.2 PA mean P.4 mmHg Lat Peak E' Saleem: 5.9 cm/sec PA pr(Accel): 27.6 mmHg E/E' lat: 14.4 E/e' average: 15.8 MV dec time: 0.26 sec SV(LVOT): 92.6 ml Reading Physician:CYNTHIA
== END ==
PROVIDERS: Family Provider Internal Medicine; PCP Internal Medicine; Visit Provider Specialist
DX: I35.0 Nonrheumatic aortic (valve) stenosis (principal); I77.89 Other specified disorders of arteries and arterioles
CPT/HCPCS: 93306

== ENCOUNTER → 2020-03-19 06:53 | Outpatient (CLI) | payer MEDICARE, SELFPAY ==
[2020-03-19 08:08] LABS: Add Manual Diff / Slide Review NO; Basophils Absolute Auto 0 /uL (0-100); Basophils Percent Auto 0.8 % (0-2); Eosinophils Absolute Auto 400 /uL (0-450); Eosinophils Percent Auto 7.2 % (2-4); Hematocrit 38.1 % (41-53); Hemoglobin 12.7 g/dL (13.5-17.5); Lymphocytes Absolute Auto 1000 /uL (1100-4500); Lymphocytes Percent Auto 18.9 % (25-40); Mean Corpuscular HGB Conc 33.4 % (30-36); Mean Corpuscular Hemoglobin 30.2 PG (26-34); Mean Corpuscular Volume 90.3 fL (80-100); Monocytes Absolute Auto 600 /uL (0-900); Monocytes Percent Auto 12.3 % (3-14); Neutrophils Absolute Auto 3100 /uL (1500-7000); Neutrophils Percent Auto 60.8 % (50-75); Platelet Count 382 X10^3/uL (150-400); Red Blood Cell Count 4.22 X10^6/uL (4.5-5.9); Red Cell Distribution Width 13.2 % (11.6-14.8); White Blood Cell Count 5.1 X10^3/uL (4.5-11.0)
[2020-03-19 08:44] LABS: Alanine Aminotransferase 26 IU/L (<50); Albumin 4.3 g/dL (3.5-5.0); Albumin Globulin Ratio 1.2 (1.0-2.8); Alkaline Phosphatase 51 U/L (38-126); Aspartate Aminotransferase 31 IU/L (17-59); BUN Creatinine Ratio 14.5 (6-22); Bilirubin Total 0.5 mg/dL (0.2-1.3); Blood Urea Nitrogen 21 mg/dL (9-20); Calcium 9.8 mg/dL (8.4-10.2); Carbon Dioxide 30 mmol/L (22-32); Chloride 101 mmol/L (98-107); Cholesterol 153 mg/dL (140-199); Estimated Glomerular Filt Rate 46.7 mL/min (>60); Globulin 3.5 g/dL (1.7-4.1); Glucose 96 mg/dL (80-110); HDL Cholesterol 82 mg/dL (40-60); HEMOLYSIS < 15 (0-50); LDL Cholesterol Calculated 55 mg/dL (<100); Magnesium 2.4 mg/dL (1.6-2.3); Potassium 5.1 mmol/L (3.4-5.1); Sodium 135 mmol/L (137-145); Total Protein 7.8 g/dL (6.3-8.2); Triglycerides 81 mg/dL (35-150)
== END ==
PROVIDERS: Family Provider Internal Medicine; PCP Internal Medicine; Referring Provider Nurse Practitioner; Visit Provider Nurse Practitioner
DX: E78.2 Mixed hyperlipidemia (principal); I10 Essential (primary) hypertension
CPT/HCPCS: 36415; 80053; 80061; 83735; 85025

== ENCOUNTER → 2020-09-17 07:01 | Outpatient (CLI) | payer MEDICARE, SELFPAY ==
[2020-09-17 08:29] LABS: Alanine Aminotransferase 31 IU/L (<50); Albumin 4.3 g/dL (3.5-5.0); Albumin Globulin Ratio 1.3 (1.0-2.8); Alkaline Phosphatase 55 U/L (38-126); Aspartate Aminotransferase 40 IU/L (17-59); BUN Creatinine Ratio 14.5 (6-22); Bilirubin Total 0.5 mg/dL (0.2-1.3); Blood Urea Nitrogen 20 mg/dL (9-20); Calcium 9.7 mg/dL (8.4-10.2); Carbon Dioxide 27 mmol/L (22-32); Chloride 98 mmol/L (98-107); Estimated Glomerular Filt Rate 49.3 mL/min (>60); Globulin 3.3 g/dL (1.7-4.1); Glucose 95 mg/dL (80-110); HEMOLYSIS < 15 (0-50); Potassium 5.2 mmol/L (3.4-5.1); Sodium 132 mmol/L (137-145); Total Protein 7.6 g/dL (6.3-8.2)
[2020-09-19 07:53] LABS: Cholesterol, Total 159 mg/dL (100-199); HDL-Cholesterol 83 mg/dL (>39); HDL-Particle (Total) 46.4 umol/L (>=30.5); LDL Particle 600 nmol/L (<1000); LDL-Cholsterol 63 mg/dL (0-99); LP-IR Score <25 (<=45); Small LDL- Particle <90 nmol/L (<=527); Triglycerides 64 mg/dL (0-149)
== END ==
PROVIDERS: Family Provider Internal Medicine; PCP Internal Medicine; Referring Provider Specialist; Visit Provider Specialist
DX: E78.2 Mixed hyperlipidemia (principal)
CPT/HCPCS: 36415; 80053; 80061; 83704

== ENCOUNTER → 2020-10-02 13:42 | Outpatient (CLI) | payer MEDICARE, SELFPAY ==
--- NOTE | 2020-10-02 13:44 | DI.ECHO.S_ITS ---
[facility]---------+ [facility] +---------+ : : [address] : [address] : : : : [id number] : : : : Phone: [phone] +---------+ Echocardiogram Report + + :Name: HAMLET YANG Study Date: 10/02/2020 Height: 66 in : :[facility] ReadingLocation: Weight: 157 lb : : Gender: Male BSA: 1.8 m2 : :: 1940 Age: 80 yrs BP: 166/83 mmHg: :Reason For Study: AORTIC STENOSIS : :Ordering Physician: DEB, : :ELIANE Performed By: Jaymie Warren : :Referring: ELIANE BOYD : + + Interpretation Summary Left ventricular systolic function remains normal with an estimated ejection fraction of 65 to 70% without any focal wall motion abnormality. Diastolic function likely is abnormal with mildly elevated filling pressures but unchanged from the previous exam. The right ventricle appears normal and unchanged since the previous study. Right ventricular systolic pressure cannot be estimated but CVP is likely around 3 mmHg. There is mild left atrial enlargement with normal right atrial size and both are essentially unchanged from the previous study. There is mild mitral regurgitation that is slightly more prominent compared to the previous study. The aortic valve is moderately calcified with significantly reduced leaflet mobility with probable moderate to severe aortic stenosis, slightly progressive since the previous exam now with a peak velocity of 4.0 m/s and a mean gradient of 36 mmHg compared to 3.3 m/s and 26 mmHg, respectively, on the previous exam. The severity ratio has decreased from 0.36 down to 0.27. There is mild aortic regurgitation that appears similar to the previous exam. Procedure: A two-dimensional transthoracic echocardiogram with color flow and Doppler was performed. The study quality was technically adequate. Comparison is made with the echocardiogram of 09/28/2019. The patient was in sinus rhythm with heart rates between 63-73 bpm during the exam. Left Ventricle: The left ventricle is normal in size and wall thickness. The estimated left ventricular end diastolic volume is 61 mL compared to 70 ml. The ejection fraction is estimated to be 65-70%. Left ventricular systolic function appears normal without focal wall motion abnormalities. Diastolic parameters suggest a pseudonormalization pattern, consistent with probable elevated filling pressures. There has been no significant change since the previous study. Right Ventricle: The right ventricle is normal in size and function. This is unchanged compared to the previous study. Atria: The left atrium is mildly dilated. Right atrial size is normal. This is unchanged compared to the previous study. There is no Doppler evidence for an interatrial shunt. Mitral Valve: There is mild to moderate mitral annular calcification. The mitral valve leaflets appear mildly thickened, but open well. There is mild mitral regurgitation. This is slightly more prominent compared to the previous study. Aortic Valve: The aortic valve is moderately calcified. There is moderate to severely reduced leaflet mobility. This is slightly progressive compared to the previous study. There is moderate to severe aortic stenosis. This is slightly progressive compared to the previous study. The peak aortic velocity is 3.96 m/sec. The aortic valve mean gradient is 36 mmHg. The calculated aortic valve area is .96 cm2. There is mild aortic regurgitation. This is unchanged compared to the previous study. Tricuspid Valve: The tricuspid valve is normal in structure and function. There is trace tricuspid regurgitation. Pulmonary artery pressures cannot be estimated because of the lack of a measurable TR jet velocity but the IVC suggests a CVP of around 3 mmHg. Pulmonic Valve: The pulmonic valve leaflets are thin and pliable; valve motion is normal. There is trace pulmonic regurgitation. Great Vessels: The aortic root is normal size. The dimensions of the ascending aorta are normal. The IVC is of normal diameter and collapses greater than 50% with a sniff. This suggests a low right atrial pressure of 3 mm Hg. Pericardium/ Pleura There is no pericardial effusion. There is no pleural effusion. MMode/2D Measurements & Calculations LVIDd: 4.2 cm LVOT diam: 2.1 cm LVIDs: 2.7 cm Ao root diam: 3.0 cm FS: 36.1 % asc Aorta Diam: 3.3 cm IVSd: 0.90 cm Ao Arch Diam (Prox Trans): 2.9 cm LVPWd: 1.1 cm LV flores. diameter/BSA (cm/m^2): 2.3 LV sys. diameter/BSA (cm/m^2): 1.5 LA A2 area: 20.6 cm2 RA long axis: 4.8 cm LA A4 area: 19.2 cm2 RA area: 15.2 cm2 LA length (vol): 5.0 cm RA vol: 40.9 ml LA vol: 67.9 ml RA : 22.7 ml/m2 LA vol index: 37.6 ml/m2 IVC diam: 1.4 cm RVD1 (basal): 3.1 cm TAPSE: 2.6 cm Doppler Measurements & Calculations Ao V2 max: 396.1 cm/sec LVOT Max Saleem: 108.7 cm/sec Ao V2 mean: 288.2 cm/sec LV V1 max P.7 mmHg Ao max P.8 mmHg LV V1 VTI: 24.6 cm Ao mean P.3 mmHg THAO(I,D): 0.96 cm2 Ao V2 VTI: 89.9 cm THAO(V,D): 0.96 cm2 sev ratio: 0.27 THAO indexed to BSA (cm^2/m^2): 0.53 AI P1/2t: 674.3 msec AI dec slope: 193.9 cm/sec2 MV E max saleem: 77.7 cm/sec TR max saleem: 214.6 cm/sec MV A max saleem: 114.9 cm/sec TR max P.4 mmHg MV E/A: 0.68 PA V2 max: 104.8 cm/sec Med Peak E' Saleem: 4.4 cm/sec PA V2 mean: 76.7 cm/sec E/E' med: 17.8 PA mean P.6 mmHg Lat Peak E' Saleem: 6.0 cm/sec PA pr(Accel): 39.6 mmHg E/E' lat: 12.9 E/e' average: 15.4 MV dec time: 0.24 sec SV(LVOT): 86.1 ml Reading Physician:05:20 PM
== END ==
PROVIDERS: Family Provider Internal Medicine; PCP Internal Medicine; Visit Provider Physician Assistant Medical
DX: I08.0 Rheumatic disorders of both mitral and aortic valves (principal)
CPT/HCPCS: 93306

== ENCOUNTER → 2021-01-13 10:22 | Outpatient (CLI) | payer MEDICARE, SELFPAY ==
--- NOTE | 2021-01-13 10:24 | DI.RAD.S_ITS ---
PROCEDURE: XR FOOT RT MIN 3V INDICATIONS: foot pain TECHNIQUE: 3 views of the foot were acquired. COMPARISON: None. FINDINGS: Bones: No fractures or dislocations. No suspicious bony lesions. Mild hallux valgus metatarsus prima varus alignment and medial bunion. Mild 1st MTP and diffuse interphalangeal joint space narrowing with periarticular osteophytosis. Soft tissues: No tibiotalar joint effusion. Achilles tendon appears normal. IMPRESSION: 1. Hallux valgus alignment and medial bunion. 2. 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 Dictated by: William Rosa [facility] Interpreted: Rebeca Crandall MD on 01/13/2021 at 10:37 Transcribed by: CAN on 01/13/2021 at 10:37 Approved by: Rebeca Crandall MD, PhD on 01/13/2021 at 11:01
== END ==
PROVIDERS: Family Provider Internal Medicine; PCP Internal Medicine; Referring Provider Internal Medicine; Visit Provider Internal Medicine
DX: M79.671 Pain in right foot (principal); M20.11 Hallux valgus (acquired), right foot; M21.611 Bunion of right foot; M19.071 Primary osteoarthritis, right ankle and foot
CPT/HCPCS: 73630

== ENCOUNTER → 2021-03-17 06:51 | Outpatient (CLI) | payer MEDICARE, SELFPAY ==
[2021-03-17 09:36] LABS: Alanine Aminotransferase 22 IU/L (<50); Albumin 4.5 g/dL (3.5-5.0); Albumin Globulin Ratio 1.5 (1.0-2.8); Alkaline Phosphatase 43 U/L (38-126); Aspartate Aminotransferase 27 IU/L (17-59); BUN Creatinine Ratio 11.5 (6-22); Bilirubin Total 0.5 mg/dL (0.2-1.3); Blood Urea Nitrogen 17 mg/dL (9-20); Calcium 9.7 mg/dL (8.4-10.2); Carbon Dioxide 29 mmol/L (22-32); Chloride 98 mmol/L (98-107); Estimated Glomerular Filt Rate 45.5 mL/min (>60); Globulin 3.1 g/dL (1.7-4.1); Glucose 93 mg/dL (80-110); HEMOLYSIS < 15 (0-50); Sodium 134 mmol/L (137-145); Total Protein 7.6 g/dL (6.3-8.2)
[2021-03-19 10:07] LABS: Cholesterol, Total 164 mg/dL (100-199); HDL-Cholesterol 86 mg/dL (>39); HDL-Particle (Total) 47.1 umol/L (>=30.5); LDL Particle 552 nmol/L (<1000); LDL-Cholsterol 66 mg/dL (0-99); LP-IR Score <25 (<=45); Small LDL- Particle <90 nmol/L (<=527); Triglycerides 58 mg/dL (0-149)
== END ==
PROVIDERS: Family Provider Internal Medicine; PCP Internal Medicine; Referring Provider Physician Assistant Medical; Visit Provider Specialist
DX: E78.2 Mixed hyperlipidemia (principal)
CPT/HCPCS: 36415; 80053; 80061; 83704

== ENCOUNTER → 2021-03-20 07:49 | Outpatient (CLI) | payer MEDICARE, SELFPAY ==
--- NOTE | 2021-03-20 07:51 | DI.ECHO.S_ITS ---
[facility]---------+ [facility] +---------+ : : [address] : [address] : : : : [id number] : : : : Phone: [phone] +---------+ Echocardiogram Report + + :Name: HAMLET YANG Study Date: 03/20/2021 Height: 67.5 in: :[facility] ReadingLocation: Weight: 159 lb : : Gender: Male BSA: 1.8 m2 : :: 1940 Age: 80 yrs BP: 170/83 mmHg: :Reason For Study: Aortic valve stenosis : :Ordering Physician: : :JOSE Performed By: [place] : :Referring: ELIANE BOYD : + + Interpretation Summary Left ventricular systolic function remains normal with an estimated ejection fraction of 65 to 70% without any focal wall motion abnormality and is unchanged from the previous study. Left ventricular size is normal with borderline concentric LVH that is also unchanged. There is likely a diastolic relaxation abnormality but probable normal filling pressures and is likely unchanged from the previous exam. The right ventricle appears normal and unchanged from the previous study. Right ventricular systolic pressure is estimated at 21 mmHg with a CVP of 3 mmHg. There is mild left atrial enlargement that is unchanged from the previous study. There is mild mitral and mild tricuspid regurgitation, the latter slightly more prominent compared to the previous study. There is significant calcific sclerosis of the aortic valve with probable moderate to severe aortic stenosis that is likely unchanged from the previous exam with a peak velocity now measured at 3.4 m/s and a mean gradient of 28 mmHg, compared to 4.0 m/s and 36 mmHg, respectively, previously. The severity ratio has improved from 0.27 to 0.32. While the calculated THAO is smaller, this is likely due to a small LVOT diameter measurement rather than a true change in valve area. There continues to be mild to moderate aortic regurgitation that appears unchanged. The ascending aorta is mildly enlarged at 3.5 cm, up from 3.3 cm previously. Procedure: A two-dimensional transthoracic echocardiogram with color flow and Doppler was performed. The study quality was technically adequate. Most of the acoustic windows were suboptimal, but the best imaging was obtained from the apical window. Comparison is made with the echocardiogram of 10/02/2020. The patient was in normal sinus rhythm during the exam. Left Ventricle: The left ventricle is normal in size. There is borderline concentric left ventricular hypertrophy. The estimated left ventricular end diastolic volume is 64 mL compared to the previous 61 ml. Left ventricular systolic function appears normal without focal wall motion abnormalities. The ejection fraction is estimated to be 65-70%. This is unchanged compared to the previous study. Diastolic parameters suggest a relaxation abnormality of the left ventricle, consistent with probable normal filling pressures. This is unchanged compared to the previous study. Right Ventricle: The right ventricle is normal in size and function. This is unchanged compared to the previous study. Atria: The left atrium is mildly dilated. Right atrial size is normal. Right atrial volume index is 26 mL/mA?. This is unchanged compared to the previous study. There is no Doppler evidence for an interatrial shunt. The atrial septum is aneurysmal. Mitral Valve: The mitral valve is normal. There is mild mitral regurgitation. This is unchanged compared to the previous study. Aortic Valve: The aortic valve is moderately calcified. There is moderately reduced leaflet mobility. The aortic valve is trileaflet. There is moderate to severe aortic stenosis. This is unchanged compared to the previous study. The peak aortic velocity is 3.4 m/sec. The peak aortic velocity on the previous exam was 4 m/sec. The aortic valve mean gradient is 28 mmHg. There is mild to moderate aortic regurgitation. This is unchanged compared to the previous study. Tricuspid Valve: The tricuspid valve is normal. There is mild tricuspid regurgitation. This is slightly more prominent compared to the previous study. The right ventricular systolic pressure is estimated to be at least 21 mmHg based on an estimated right atrial pressure of 3 mm Hg. Pulmonic Valve: The pulmonic valve leaflets are thin and pliable; valve motion is normal. There is a trace or physiologic amount of pulmonic regurgitation. Great Vessels: The aortic root is normal size. This is slightly larger compared to the previous study. The ascending aorta is mildly enlarged. The aortic arch is normal in size. The IVC is of normal diameter and collapses greater than 50% with a sniff. This suggests a low right atrial pressure of 3 mm Hg. Pericardium/ Pleura There is no pericardial effusion. There is no pleural effusion. MMode/2D Measurements & Calculations LVIDd: 3.8 cm LVOT diam: 1.7 cm LVIDs: 2.9 cm Ao root diam: 2.9 cm FS: 23.7 % asc Aorta Diam: 3.5 cm IVSd: 1.2 cm Ao Arch Diam (Prox Trans): 1.9 cm LVPWd: 1.0 cm LV flores. diameter/BSA (cm/m^2): 2.1 LV sys. diameter/BSA (cm/m^2): 1.6 LA A2 area: 20.7 cm2 RA long axis: 5.2 cm LA A4 area: 21.3 cm2 LA length (vol): 5.6 cm LA vol: 66.5 ml LA vol index: 36.0 ml/m2 LVLs ap4: 5.5 cm LVLd ap2: 6.6 cm LVLs ap2: 5.2 cm TAPSE_phl: 2.7 cm Doppler Measurements & Calculations Ao V2 max: 341.0 cm/sec LVOT Max Saleem: 115.0 cm/sec Ao V2 mean: 252.0 cm/sec LV V1 max P.3 mmHg Ao max P.0 mmHg LV V1 VTI: 26.9 cm Ao mean P.0 mmHg THAO(I,D): 0.73 cm2 Ao V2 VTI: 83.8 cm THAO(V,D): 0.77 cm2 sev ratio: 0.32 THAO indexed to BSA (cm^2/m^2): 0.39 MV E max saleem: 82.0 cm/sec TR max saleem: 211.7 cm/sec MV A max saleem: 133.0 cm/sec TR max P.9 mmHg MV E/A: 0.62 PA V2 max: 89.2 cm/sec Med Peak E' Saleem: 5.4 cm/sec PA V2 mean: 69.4 cm/sec E/E' med: 15.1 PA mean P.0 mmHg Lat Peak E' Saleem: 7.0 cm/sec PA pr(Accel): 31.3 mmHg E/E' lat: 11.8 E/e' average: 13.5 MV dec time: 0.24 sec SV(LVOT): 61.1 ml AV VR_phl: 0.34 THAO(VTI)/BSA_phl: 0.39 MV P1/2t-pr_phl: 70.0 msec Reading Physician:09:43 AM
== END ==
PROVIDERS: Family Provider Internal Medicine; PCP Internal Medicine; Referring Provider Specialist; Visit Provider Physician Assistant Medical
DX: I08.3 Combined rheumatic disorders of mitral, aortic and tricuspid valves (principal); I77.89 Other specified disorders of arteries and arterioles
CPT/HCPCS: 93306

== ENCOUNTER → 2021-09-01 12:00 | Outpatient (CLI) | payer MEDICARE, SELFPAY ==
--- NOTE | 2021-09-01 | DI.US.S_ITS ---
PROCEDURE: US CAROTID DOPPLER BI INDICATIONS: BILATERAL CAROTID BRUITS TECHNIQUE: Color and pulse Doppler interrogation was performed of both carotid systems, with image documentation and velocity measurements. COMPARISON: [facility], [place], US CAROTID DOPPLER BI, 10/03/2018, 12:29. FINDINGS: Stenosis calculations are based on SRU (Society of Radiologists in Ultrasound) criteria. Right side: Brachial blood pressure: 137/70 mm Hg. Common carotid artery peak systolic velocity: 50 cm/sec. Internal carotid artery peak systolic velocity: 68 cm/sec. Internal carotid artery end diastolic velocity: 20 cm/sec. External carotid artery peak systolic velocity: 95 cm/sec. ICA/CCA peak systolic ratio: 1.4 . Brennan scale imaging description: Moderate scattered plaque. Percent internal carotid artery stenosis: Less than 50% . Vertebral artery: Flow direction is antegrade. Left side: Brachial blood pressure: 150/67 mm Hg. Common carotid artery peak systolic velocity: 67 cm/sec. Internal carotid artery peak systolic velocity: 57 cm/sec. Internal carotid artery end diastolic velocity: 20 cm/sec. External carotid artery peak systolic velocity: 83 cm/sec. ICA/CCA peak systolic ratio: 0.9 . Brennan scale imaging description: Moderate scattered plaque. Percent internal carotid artery stenosis: Less than 50% . Vertebral artery: Flow direction is antegrade. IMPRESSION: Stable less than 50% bilateral internal carotid artery stenosis. Dictated by: William Rosa [facility] Interpreted: Nikolai Francisco MD on 09/01/2021 at 12:45 Transcribed by: JUANITA on 09/01/2021 at 12:46 Approved by: Nikolai Francisco M.D. on 09/01/2021 at 17:45
== END ==
PROVIDERS: Family Provider Internal Medicine; PCP Internal Medicine; Referring Provider Specialist; Visit Provider Specialist
DX: R09.89 Other specified symptoms and signs involving the circulatory and respiratory systems (principal); I65.23 Occlusion and stenosis of bilateral carotid arteries
CPT/HCPCS: 93880

== ENCOUNTER → 2021-09-13 07:50 | Outpatient (CLI) | payer MEDICARE, SELFPAY ==
[2021-09-13 09:08] LABS: Alanine Aminotransferase 22 IU/L (<50); Albumin 4.4 g/dL (3.5-5.0); Albumin Globulin Ratio 1.4 (1.0-2.8); Alkaline Phosphatase 43 U/L (38-126); Aspartate Aminotransferase 27 IU/L (17-59); BUN Creatinine Ratio 12.4 (6-22); Bilirubin Total 0.5 mg/dL (0.2-1.3); Blood Urea Nitrogen 20 mg/dL (9-20); Calcium 9.5 mg/dL (8.4-10.2); Carbon Dioxide 28 mmol/L (22-32); Chloride 103 mmol/L (98-107); Cholesterol 138 mg/dL (140-199); Estimated Glomerular Filt Rate 42 mL/min (>60); Globulin 3.1 g/dL (1.7-4.1); Glucose 95 mg/dL (80-110); HDL Cholesterol 66 mg/dL (40-60); HEMOLYSIS < 15 (0-50); LDL Cholesterol Calculated 57 mg/dL (<100); Potassium 4.9 mmol/L (3.4-5.1); Sodium 136 mmol/L (137-145); Total Protein 7.5 g/dL (6.3-8.2); Triglycerides 74 mg/dL (35-150)
== END ==
PROVIDERS: Family Provider Internal Medicine; PCP Internal Medicine; Referring Provider Specialist; Visit Provider Specialist
DX: E78.2 Mixed hyperlipidemia (principal)
CPT/HCPCS: 36415; 80053; 80061